=== PATIENT | male | born 1980 | race Caucasian/White ===

== ENCOUNTER 2018-08-25 08:42 | Outpatient (CLI) | payer OTHER, MEDICAID ==
[~2018-08-25 08:42] MED LIST: CYCL-1 PO
== END 2018-08-25 23:59 | disposition home or self-care (01) ==
LOC: RAD 08:42
PROVIDERS: ATTEND Physician Assistant Surgical
DX: R56.9 Unspecified convulsions (principal); R51 Headache; F17.200 Nicotine dependence, unspecified, uncomplicated
CPT/HCPCS: 95816